=== PATIENT | male | born 1985 | race Caucasian/White ===

== ENCOUNTER 2025-01-13 16:07 | Emergency (ER) | payer SELFPAY ==
[2025-01-13] VITALS (10 sets, daily range): BP systolic 188–209; BP diastolic 96–122; PULSE 90–103; RESP 12–25; TEMP 37.2–37.4; O2SAT 96–98
--- NOTE | 2025-01-13 16:00 | RT.EKG_ITS ---
APPROVED REPORT Exam: Resting ECG Reason for Exam: palpitations Patient Location: E HR:93 bpm ECG Measurements Heart Rate 93 AXIS MS 170 P 46 QRSd 87 QRS 43 QT 332 T 39 QTc 412 Conclusion Sinus rhythm...normal P axis, V-rate 60- 99 No Occlusion [place]
--- NOTE | 2025-01-13 16:27 | W.ED.GENAD ---
Discharge Plan Discharge Details Chief Complaint: GenMedical Primary Care Provider: Isaac Alonso ED Provider: Grayson Marin Home Meds and New Rx's Prescriptions: No Action topiramate 25 mg capsule,extended release 24hr 25 mg PO DAILY buspirone 7.5 mg tablet 7.5 mg PO BID gabapentin 600 mg tablet 600 mg PO DAILY hydroxyzine HCl 25 mg tablet 25 mg PO QHS trazodone 100 mg tablet 100 mg PO DAILY lisdexamfetamine [Vyvanse] 30 mg capsule 30 mg PO DAILY zolpidem [Ambien] 1 tab PO DAILY HPI General Date/Time Provider Initiated Documentation: 01/13/25 16:27. HPI Narrative: MDM This is an uncomfortable appearing hypertensive but normothermic and not tachycardic 39-year-old male with hematemesis concerning for the possibility of esophageal rupture given ethanol abuse for which patient will undergo CT angiogram of his chest abdomen pelvis to also assess for aortic dissection. No pain or proportion to suggest necrotizing soft tissue infection. Equal breath sounds and no trauma to chest make my suspicion low for pneumothorax. Patient has a nonischemic twelve-lead ECG and lacks significant risk factors nonetheless we will obtain troponins to rule stratify for ACS. Patient is not a dialysis patient nor is he hypotensive to suggest increased risk for tamponade. No rash to chest to suggest zoster. Given alcohol abuse will send lipase to assess for pancreatitis. No fevers no cough to suggest pneumonia. I considered PE however patient is PERC negative so I did not send a D-dimer. Patient is hypertensive but not tachycardic not tremulous so my suspicion is low for withdrawal. Patient arrived to the end of my shift so we will sign patient out to Dr. Villatoro. Will defer aspirin given nonischemic ECG and symptoms of reflux. Will treat with famotidine, and use fentanyl for sympatholysis. HPI This is a patient with a history of ulcers presenting with vomiting and chest pain. The patient reports vomiting for the past 5 days, describing the vomitus as acidic. He has been vomiting blood daily. He also reports central chest pain that radiates downwards and is accompanied by sweating. The pain does not improve with any measures and is exacerbated by anything ingested. He has not consumed water recently. The patient has a history of heart issues, including a suspected STEMI, but no stent placement. He reports high blood pressure and high cholesterol, for which he is not on medication. He does not have diabetes. The patient smokes 15 cigarettes per day. He has a history of alcohol consumption, with his last drink being 3-4 days ago. He experiences tremors when abstaining from alcohol and has had seizures due to alcohol withdrawal. He has never required intubation. The patient has neuropathy in his legs. He has undergone a remote cholecystectomy. There is no history of recent falls, chest trauma, blood clots in the legs or lungs, or calf pain. He does not require dialysis. Exam General: Uncomfortable-appearing in no acute distress speaking in complete sentences. Head: Normocephalic, atraumatic. Eye: Extraocular eye movements intact. No conjunctival injection. No scleral icterus. Ear, nose, mouth, throat: Grossly normal inspection. Normal voice, handling secretions normally. No tongue fasciculations. Neck: Trachea midline. Cardiovascular: Well-perfused distal extremities. Regular rate rhythm Respiratory: Nonlabored respiration. Clear lungs bilaterally Gastrointestinal: Nondistended abdomen. Soft. No crepitance. No rebound. No guarding. Musculoskeletal: No edema. Moving all 4 extremities spontaneously. Skin: Normal for age and race, grossly normal temperature and turgor. No acute rash. Neurologic: Alert and appropriate, no apparent acute deficits. Psychiatric: Mood and manner are appropriate. Grooming and personal hygiene are appropriate. Related Data Home Medications ?Medication ?Instructions ?Recorded ?Confirmed gabapentin 600 mg tablet 600 mg PO DAILY 09/22/23 01/13/25 hydroxyzine HCl 25 mg tablet 25 mg PO QHS 09/22/23 01/13/25 trazodone 100 mg tablet 100 mg PO DAILY 09/22/23 01/13/25 buspirone 7.5 mg tablet 7.5 mg PO BID 03/23/24 01/13/25 topiramate 25 mg capsule,extended 25 mg PO DAILY 03/23/24 01/13/25 release 24 hr lisdexamfetamine 30 mg capsule 30 mg PO DAILY 01/13/25 01/13/25 (Vyvanse) zolpidem 1 tab PO DAILY 01/13/25 01/13/25 Allergies Allergy/AdvReac Type Severity Reaction Status Date / Time mushroom Allergy Unknown OTHER Verified 01/13/25 16:15 effexor Allergy Unknown Other (See Uncoded 01/13/25 16:15 Comment) General Stated Complaint: [facility]Medical [place]IGHTON: 2 Course Vital Signs Vital signs: Vital Signs Temperature 37.2 C 01/13/25 16:09 Pulse 90 01/13/25 16:09 Respiratory Rate 20 01/13/25 16:09 Blood Pressure 188/122 H 01/13/25 16:09 Pulse Oximetry 97 01/13/25 16:09 Temperature 37.2 C 01/13/25 16:09 Temperature Source Oral 01/13/25 16:09 Pulse 90 01/13/25 16:09 Respiratory Rate 20 01/13/25 16:09 Blood Pressure 188/122 H 01/13/25 16:09 Blood Pressure Position Sitting 01/13/25 16:09 Pulse Oximetry 97 01/13/25 16:09 Oxygen Delivery Method Room Air 01/13/25 16:09 Oxygen Flow Rate 0 01/13/25 16:09 Pain Level 8 01/13/25 16:09 PFSH Medical History (Updated 09/18/23 @ 09:59 by Delilah Munoz) PTSD (post-traumatic stress disorder) Psychoses Obstructive sleep apnea Neuropathy Knee pain, right Family history of Crohn's disease History of depression Bipolar disorder Autism Anxiety Family History (Updated 09/18/23 @ 10:03 by Delilah Munoz) Mother Cancer CERVICAL Crohn's disease Father Heart disease Maternal Grandfather Crohn's disease Hypertension Maternal Grandmother Fibromyalgia Social History (Updated 09/18/23 @ 10:00 by Delilah Munoz) Smoking/Tobacco Use Status: Current every day Tobacco Type: cigarettes Years smoked: 31 Smoking risk assessment performed?: Yes Alcohol Intake: current Details: 1-2 X PER WEEK Drug use: Occasionally Substance use type: marijuana Details: Pt states he smokes marijuana occasionally 01/13/25 Do you feel safe at home: Yes Do you feel safe in your relationship?: Yes PAWSS Have you Been Recently Intoxicated or Drunk Within the Last 30 days?: Yes Have you Ever Experienced Previous Episodes of Alcohol Withdrawal?: Yes Have you ever Experienced Withdrawal Seizures?: Yes Have you ever Experienced Delirium Tremens(DT)s?: Yes Have you ever undergone Alcohol Rehabilitation Treatment (i.e, inpt ot outpatient treatment programs)?: Yes Have you ever Experienced Blackouts?: No Have you ever Combined Alcohol with other Downers within the last 90 days?: No Have you ever Combined Alcohol with any other Substance of Abuse during the last 90 days?: No Positive Blood Alcohol level on Presentation? [PCS.BAL]: Unable to Obtain Evidence of Increased Autonomic Activity (i.e. HR>120, tremor, sweating, agitation, nausea)?: Yes Result: 6
--- NOTE | 2025-01-13 16:45 | DI.CT_ITS ---
Exam(s) CT THORAX ABD/PEL CTA EXAM: CT THORAX ABD/PEL CTA CLINICAL HISTORY: Chest pain concern for dissection. TECHNIQUE: Imaging Protocol: Axial CT angiography was performed with multi- slice acquisition and multi-planar and/or 3D reconstructions. CONTRAST MATERIAL: Intravenous: Omnipaque 350 Contrast volume:100 ml Oral: no COMPARISON: No exams were available for comparison FINDINGS: CHEST: Pulmonary Arteries: No evidence of filling defect to suggest pulmonary emboli. Tracheobronchial tree: Patent where visualized. Mediastinum and Kathryn: No dominant adenopathy or fluid collection. Pulmonary parenchyma: No consolidation or dominant measurable mass. Calcified granuloma lateral right upper lobe. Pleura: No effusion or pneumothorax. Heart: The heart is not dilated. No coronary artery calcifications are seen. Aorta: Thoracic aorta non-dilated. Bones: Normal. Tubes, Catheters, and Lines: ABDOMEN AND PELVIS: Abdomen: Celiac axis/mesenteric arteries: No evidence of occlusion or significant stenosis. Renal Arteries: No evidence of occlusion or significant stenosis. There is a single renal artery perfusing each kidney. Aorta: No evidence of occlusion or significant stenosis. No aneurysm or dissection. Pelvis: Iliac Arteries: No evidence of occlusion or significant stenosis. Common Femoral Arteries: No evidence of occlusion or significant stenosis. ABDOMEN: Liver: Enlarged at 20 cm in length. Mild hepatic steatosis. No measurable mass. Portal, Superior Mesenteric, and Splenic Veins: Unremarkable. Gallbladder and Biliary Tract: Cholecystectomy. No biliary dilation. Pancreas: Normal density, no abnormal calcifications or inflammatory process. Spleen: Normal. Adrenals: No masses seen. Kidneys: Normal size, contour and axis. The left renal pelvis is prominent. No radiodense stones or obstructive uropathy. No masses seen. Bowel: No obstruction or bowel wall thickening. Appendix is unremarkable. Increased stool in the rectum. Peritoneal Cavity: No ascites, collection or mesenteric inflammatory response. Lymph Nodes: Within normal limits. Bones: Unremarkable. Soft Tissues: Unremarkable. PELVIS: Bladder: Symmetric distention, no gross wall thickening. Reproductive Organs: Unremarkable as visualized. Lymph Nodes: Within normal limits. Bones: Within normal limits. IMPRESSION: No acute abnormality in the chest, abdomen and pelvis. No evidence of dissection or aneurysm. No significant atherosclerotic changes. RADIATION DOSE DELIVERED: DATA REPOSITORY: All CT scans at this facility are submitted to the National Radiology Data Registry (NRDR) Dose Index Registry (DIR) with the [employer] (ACR). RADIATION OPTIMIZATION: All CT scans at this facility use at least one of these dose optimization techniques: automated exposure control; mA and/or kV adjustment per patient size (includes targeted exams where dose is matched to clinical indication); or iterative reconstruction.
[2025-01-13 16:52] LABS: Abs Immature Grans 0.02 10^3/uL (0.0-0.06); HCT 44.1 % (40.0-50.0); HGB 15.7 g/dL (13.5-17.5); Immature Grans % 0.3 %; MCH 30.1 pg (27.0-33.0); MCHC 35.6 % (32.0-36.0); MCV 85 fL (80-95); MPV 9.6 fL (8.0-11.0); Platelet Count 151 10^3/uL (130-400); RBC 5.21 10^6/uL (4.36-5.78); RDW 13.3 % (11.8-14.1); RDW-SD 41.4 fL; WBC 6.55 10^3/uL (4.4-10.8)
--- NOTE | 2025-01-13 16:54 | W.EDPROG ---
Date of service: 01/13/25 Time of Service: 16:55 Medical Decision Making In the event that there is a component of GI bleed in the setting of his ethanol I also ordered type and screen treated with famotidine and use ondansetron for nausea. Discharge Plan Discharge Details Chief Complaint: GenMedical Clinical Impression: Hematemesis, Chest pain, unspecified, Blood pressure elevated without history of HTN Primary Care Provider: Isaac Alonso ED Provider: Grayson Marin Moffat Meds and New Rx's Prescriptions: No Action topiramate 25 mg capsule,extended release 24hr 25 mg PO DAILY buspirone 7.5 mg tablet 7.5 mg PO BID gabapentin 600 mg tablet 600 mg PO DAILY hydroxyzine HCl 25 mg tablet 25 mg PO QHS trazodone 100 mg tablet 100 mg PO DAILY lisdexamfetamine [Vyvanse] 30 mg capsule 30 mg PO DAILY zolpidem [Ambien] 1 tab PO DAILY
[2025-01-13] MEDS: fentaNYL 100 MCG/2 ML VIAL 75 MCG IVP (16:55)
[2025-01-13] MEDS: Famotidine 20 MG/2 ML VIAL 40 MG IVP (16:55)
[2025-01-13] MEDS: Normal Saline 500 ML IV (16:57)
[2025-01-13] MEDS: Ondansetron 4 MG/2 ML VIAL IVP (17:11)
[2025-01-13] MEDS: Pantoprazole 40 MG VIAL 80 MG IVP (17:11)
[2025-01-13 17:12] LABS: Lipase 45 U/L (<78); Magnesium 1.9 mg/dL (1.8-2.4); Troponin I 5 ng/L (<or=76)
[2025-01-13] MEDS: Omnipaque 350 MG/ML 100 ML BTL IJ (17:33)
[2025-01-13] MEDS: Normal Saline - Diluent 50 ML VIAL IJ (17:33)
[2025-01-13 18:27] LABS: ALT 85 U/L (16-63); AST 61 U/L (15-37); Albumin 3.8 g/dL (3.4-5.0); Alkaline Phosphatase 79 U/L (46-116); Anion Gap 12.4 mmol/L (3-11); BUN 5 mg/dL (7-18); Bilirubin, Total 0.6 mg/dL (0.2-1.0); CO2 23.6 mmol/L (21.0-32.0); Calcium 8.5 mg/dL (8.5-10.1); Chloride 103 mmol/L (98-107); Estimated GFR 119.46 (mL/min/1.73m2); Glucose 105 mg/dL (74-106); Potassium 3.8 mmol/L (3.5-5.1); Sodium 139 mmol/L (136-145); Total Protein 7.0 g/dL (6.4-8.2)
[2025-01-13 18:34] LABS: Troponin I 6 ng/L (<or=76)
--- NOTE | 2025-01-13 18:59 | W.EDPROG ---
Date of service: 01/13/25 Time of Service: 22:34 Medical Decision Making Patient was signed out to me pending CT scan results. Please refer to , physical exam, assessment and plan. CT scan results returned, and shows no evidence of acute abnormality in the chest abdomen or pelvis. No evidence of dissection or aneurysm, no evidence to suggest Boerhaave's tear. On reassessment the patient feels much better. He is playing his completely resolved, he has had no further vomiting. He no hematemesis. He feels well and is asking to go. We discussed his imaging findings, his lab results which are benign, and discussed the importance of Protonix, famotidine and Carafate. He understands. Patient has not drunk any alcohol for the last 3 to 4 days. He states that he feels that he is past the worst part of the withdrawal, does not want any additional assistance. Patient made it unequivocally clear that he would like to be discharged immediately and did not want to wait any longer. We discussed the risk and benefits of observation versus discharge, patient understands. Patient will be discharged home. Patient has no more hematemesis. He does not want to stay overnight for observation. He is requesting to leave immediately. We will place referral for outpatient EGD. Discussed red flags for which to return. I have extensively reviewed the treatment plan and discharge instructions with the patient. I have addressed all patient concerns at this time. The patient was made aware of what symptoms to monitor for that would warrant a return to the emergency department. Discussed the plan with the patient, they demonstrate verbal understanding and agreement with our assessment and plan at this time. The documentation in this chart was dictated using [employer] dictation software. Please excuse any dictation errors. FINDINGS: CHEST: Pulmonary Arteries: No evidence of filling defect to suggest pulmonary emboli. Tracheobronchial tree: Patent where visualized. Mediastinum and Kathryn: No dominant adenopathy or fluid collection. Pulmonary parenchyma: No consolidation or dominant measurable mass. Calcified granuloma lateral right upper lobe. Pleura: No effusion or pneumothorax. Heart: The heart is not dilated. No coronary artery calcifications are seen. Aorta: Thoracic aorta non-dilated. Bones: Normal. Tubes, Catheters, and Lines: ABDOMEN AND PELVIS: Abdomen: Celiac axis/mesenteric arteries: No evidence of occlusion or significant stenosis. Renal Arteries: No evidence of occlusion or significant stenosis. There is a single renal artery perfusing each kidney. Aorta: No evidence of occlusion or significant stenosis. No aneurysm or dissection. Pelvis: Iliac Arteries: No evidence of occlusion or significant stenosis. Common Femoral Arteries: No evidence of occlusion or significant stenosis. ABDOMEN: Liver: Enlarged at 20 cm in length. Mild hepatic steatosis. No measurable mass. Portal, Superior Mesenteric, and Splenic Veins: Unremarkable. Gallbladder and Biliary Tract: Cholecystectomy. No biliary dilation. Pancreas: Normal density, no abnormal calcifications or inflammatory process. Spleen: Normal. Adrenals: No masses seen. Kidneys: Normal size, contour and axis. The left renal pelvis is prominent. No radiodense stones or obstructive uropathy. No masses seen. Bowel: No obstruction or bowel wall thickening. Appendix is unremarkable. Increased stool in the rectum. Peritoneal Cavity: No ascites, collection or mesenteric inflammatory response. Lymph Nodes: Within normal limits. Bones: Unremarkable. Soft Tissues: Unremarkable. PELVIS: Bladder: Symmetric distention, no gross wall thickening. Reproductive Organs: Unremarkable as visualized. Lymph Nodes: Within normal limits. Bones: Within normal limits. IMPRESSION: No acute abnormality in the chest, abdomen and pelvis. No evidence of dissection or aneurysm. No significant atherosclerotic changes. Discharge Plan Disposition Patient Disposition: Home Condition: Stable Discharge Details Clinical Impression: Hematemesis, Chest pain, unspecified, Blood pressure elevated without history of HTN Primary Care Provider: Isaac Alonso ED Provider: Loki Villatoro Home Meds and New Rx's Prescriptions: New pantoprazole [Protonix] 40 mg tablet,delayed release (DR/EC) 40 mg PO DAILY Qty: 60 0RF famotidine 40 mg tablet 40 mg PO DAILY Qty: 60 0RF sucralfate [Carafate] 1 gram tablet 1 g PO BID Qty: 60 0RF No Action topiramate 25 mg capsule,extended release 24hr 25 mg PO DAILY buspirone 7.5 mg tablet 7.5 mg PO BID gabapentin 600 mg tablet 600 mg PO DAILY hydroxyzine HCl 25 mg tablet 25 mg PO QHS trazodone 100 mg tablet 100 mg PO DAILY lisdexamfetamine [Vyvanse] 30 mg capsule 30 mg PO DAILY zolpidem [Ambien] 1 tab PO DAILY Discharge Instructions Instructions: GI bleed Additional Instructions: At this time your symptoms have improved, and there is no more bleeding. Please take the medications as prescribed. They have been sent to your pharmacy on file. If you notice any worsening of your symptoms, or any new symptoms such as vomiting, diarrhea, fever, chills, shortness of breath, chest pain, numbness, weakness, or fainting , please return immediately to the emergency department for reevaluation. Please follow up with your primary care provider as soon as possible for reassessment and reevaluation. As always, it was a pleasure participating in your medical care today. Referrals: Isaac Alonso [Primary Care Provider, Medicine]
--- NOTE | 2025-01-13 22:44 | NUR.NOTE ---
Nursing Note: accessed pT chart to place a referral to [facility] per Dr Villatoro's request.
== END 2025-01-13 19:05 | disposition home or self-care (01) ==
PROVIDERS: Emergency Medicine; Emergency Provider Student in an Organized Health Care Education/Training Program; PCP Family Medicine
DX: R07.9 Chest pain, unspecified (principal); R03.0 Elevated blood-pressure reading, without diagnosis of hypertension; K92.0 Hematemesis; F10.90 Alcohol use, unspecified, uncomplicated
CPT/HCPCS: 99284; 99285; 96374; 96375; 36415; 00123; 71275; 80053; 83690; 86850; 86900; 86901; 93005; 96361; 74174; 80320; 83735; 84484; 85025; 93010; J2405; J2470; J3010; J3490